=== PATIENT | male | born 1980 | race Caucasian/White ===

== ENCOUNTER 2019-07-10 15:53 | Emergency (ER) | payer OTHER ==
--- NOTE | 2019-07-10 18:13 | ED Physician Documentation ---
History of Present Illness - Stated complaint Stated Complaint: L ELBOW SWELLING - Chief complaint Chief Complaint: Ext Problem - Additonal information Additional information: This is a 38-year-old male who presents with left elbow swelling and pain. Patient worked out this morning doing triceps at 5 AM, and then around noon he was working at the computer and he began having some pain in the posterior elbow. He states it is increased and is noticed swelling in the back of his to the area, or any wounds over the area. There is feels hot to the touch. He has had a MRSA infection in the past but not in the joints, the running and skin infections. No fever. Review of Systems Constitutional: denies: Fever Musculoskeletal: reports: Extremity pain Immunocompromised: denies: Immunocompromised PD PAST MEDICAL HISTORY - Past Surgical History Past Surgical History: Yes - Present Medications Home Medications: Ambulatory Orders Medication Instructions Recorded Confirmed No Known Home Medications 05/05/19 05/05/19 Omeprazole 20 mg PO BID 05/05/19 07/10/19 - Allergies Allergies/Adverse Reactions: Allergies Allergy/AdvReac Type Severity Reaction Status Date / Time Penicillins Allergy Hives Verified 07/10/19 16:10 - Social History Does the pt smoke?: Yes Smoking Status: Current every day smoker Does the pt drink ETOH?: Yes Does the pt have substance abuse?: No - Immunizations Immunizations are current?: Yes PD ED PE NORMAL - General General: Alert and oriented X 3 - HEENT HEENT: Atraumatic - Cardiac Cardiac: RRR - Respiratory Respiratory: No respiratory distress - Extremities Extremities: Other (There is redness and warmth over the olecranon of the left elbow. There is fluid palpable in the bursa. No joint tenderness. No overlying lesions or breaks in the skin. Limb is neurovascularly intact. Surrounding tissues are unremarkable.) - Neuro Neuro: Alert and oriented X 3 - Psych Psych: Normal mood, Normal affect Results - Vitals Vitals: Oxygen O2 Source Room air - Labs Labs: Microbiology 07/10/19 19:05 Body Fluid Culture - Final Synovial Fluid Staphylococcus Aureus Laboratory Tests 07/10/19 07/10/19 07/10/19 18:35 18:35 19:05 WBC 9.4 RBC 4.54 L Hgb 14.9 Hct 43.2 MCV 95.2 H MCH 32.8 H MCHC 34.5 RDW 11.5 L Plt Count 181 MPV 10.4 Neut # (Auto) 6.4 Lymph # (Auto) 2.0 [place] # (Auto) 0.8 Eos # (Auto) 0.2 Baso # (Auto) 0.1 Absolute Nucleated RBC 0.00 Nucleated RBC % 0.0 Sodium 136 Potassium 4.1 Chloride 100 L Carbon Dioxide 25 Anion Gap 11.0 BUN 37 H Creatinine 1.2 Estimated GFR (MDRD) 68 L Glucose 97 Calcium 9.4 Total Bilirubin 0.8 AST 31 ALT 30 Alkaline Phosphatase 60 C-Reactive Protein < 1.0 Total Protein 7.8 Albumin 4.5 Globulin 3.3 Albumin/Globulin Ratio 1.4 Lipase 33 Fluid Crystals NONE SEEN Procedures - General procedure General procedure: Bursa aspiration: Verbal consent was obtained and the elbow was prepped with chlorhexidine and drapped with sterile towels. Using sterile technique a wheal of lidocaine was injected followed by aspiration of the bursa with a 20 gauge needle. There was return of ~5ml of reddish clear fluid, which did not appear purulent. This was sent to lab. A clean bandage applied over the aspiration site. Pt tolerated procedure well without immediate complication. PD MEDICAL DECISION MAKING - ED course Complexity details: considered differential (Bursitis, septic bursitis, overuse injury, septic joint) ED course: Pt presents with a swollen, painful elbow after working out this morning. The inflammation is located over the bursa and he has no pain in the joint itself, he does have good ROM of the elbow with some discomfort. This does not appear to be septic arthritis. I aspirated the bursa and gram stain shows no organisms, unfortunately there was an error with the lab cell counts so these were no accurately obtained. No crystals seen. No leukocytosis on labs, CRP negative. I discussed that we will culture the fluid and treat him for what appears to be an inflammatory bursitis at this time. I discussed that if he has worsening, difficulty moving the elbow, or fever, he needs to return as this could be suggestive of infection, though his results are reassuring at this time. He agrees and was discharged home. Addendum: I reviewed the microbiology on 07/13, it shows firtz-sensitive Staph Aureus. I called the patient, he had not yet heard this result, he did follow up 2 days ago and was started on bactrim and tramadol by a provider in the [facility]. He has taken the bactrim for 48 hours and his pain is decreased but redness has extended further along the arm. Given this is progressing despite abx I asked that he come back to the ED as he may need repeat aspiration and IV abx. At the very least he needs a repeat exam to ensure there are not signs of joint involvement. He agrees and will be seen promptly. I called the [facility] to update Lt. Bassart as requested by Pt, and the ED to notify the provider on. Departure - Departure Disposition: 01 Home, Self Care Clinical Impression: Olecranon bursitis, left elbow Condition: Good Instructions: ED Bursitis Elbow Olecranon Follow-Up: Your,PCP [Other] Comments: You appear to have a bursitis or inflammation of a fluid-filled sac around your elbow. We do not see signs of an infection in the bursa at this time. You may take ibuprofen 600 mg every 6 hours for pain, ice the elbow for 20 minutes at a time at least 3 times a day, and avoid trauma to the elbow and repetitive motion of the elbow until this is improving. Please follow-up with your primary care provider. If you are developing signs of infection such as redness streaking away from the elbow, fever, or pus draining from the elbow, return to the emergency department. Forms: Activity restrictions Discharge Date/Time: 07/10/19 21:13
[2019-07-10] MEDS ORDERED: LIDOCAINE 1% 2 ML VIAL SUBQ STA (18:19)
[2019-07-10 18:44] LABS: BASOPHILS # (AUTO) 0.1 10^3/uL (0.0-0.1); BASOPHILS % (AUTO) 0.5 %; EOSINOPHILS # (AUTO) 0.2 10^3/uL (0.0-0.7); EOSINOPHILS % (AUTO) 2.1 %; HGB - HEMOGLOBIN 14.9 g/dL (14.0-18.0); LYMPHOCYTES % (AUTO) 21.4 %; MEAN CORPUSCULAR HEMOGLOBIN 32.8 pg (27.0-31.0); MEAN CORPUSCULAR HGB CONC 34.5 g/dL (32.0-36.0); MEAN CORPUSCULAR VOLUME 95.2 fL (80.0-94.0); MEAN PLATELET VOLUME 10.4 fL (7.4-11.4); MONOCYTES # (AUTO) 0.8 10^3/uL (0.0-1.0); NEUTROPHILS # (AUTO) 6.4 10^3/uL (1.5-6.6); NEUTROPHILS % (AUTO) 67.7 %; PLT - PLATELET COUNT 181 10^3/uL (130-450); RED BLOOD COUNT 4.54 10^6/uL (4.70-6.10); RED CELL DISTRIBUTION WIDTH 11.5 % (12.0-15.0); WHITE BLOOD COUNT 9.4 x10^3/uL (4.8-10.8)
--- NOTE | 2019-07-10 18:55 | XRAY Report ---
Reason: Posterior elbow swelling and pain Procedure Date: 07/10/2019 Accession Number: [id number] / [id number] Procedure: XR - Elbow 3 View LT CPT Code: Final Report FULL RESULT: EXAM: LEFT ELBOW RADIOGRAPHY EXAM DATE: 07/10/2019 06:33 PM. CLINICAL HISTORY: Posterior elbow swelling and pain. COMPARISON: None. TECHNIQUE: 3 views. FINDINGS: Bones: Normal. No fractures or bone lesions. Joints: Normal. No effusion. No subluxation. Soft Tissues: Posterior olecranon soft tissue swelling present. No soft tissue gas evident. IMPRESSION: Posterior olecranon soft tissue swelling most consistent with olecranon bursitis. RADIA
[2019-07-10 18:58] LABS: ALBUMIN 4.5 g/dL (3.2-5.5); ALBUMIN/GLOBULIN RATIO 1.4 (1.0-2.2); ALKALINE PHOSPHATASE 60 IU/L (42-121); ALT ALANINE AMINOTRANSFERASE 30 IU/L (10-60); AST ASPARTATE AMINOTRANSFERASE 31 IU/L (10-42); BILIRUBIN,TOTAL 0.8 mg/dL (0.2-1.0); BUN - BLOOD UREA NITROGEN 37 mg/dL (6-20); CALCIUM 9.4 mg/dL (8.5-10.3); CARBON DIOXIDE - CO2 25 mmol/L (21-32); CHLORIDE 100 mmol/L (101-111); CREATININE 1.2 mg/dL (0.6-1.2); GFR - MDRD 68 (>89); GLUCOSE 97 mg/dL (70-100); LIPASE 33 U/L (22-51); SODIUM 136 mmol/L (135-145); TOTAL PROTEIN 7.8 g/dL (6.7-8.2)
[2019-07-10 19:30] LABS: CRP - C-REACTIVE PROTEIN < 1.0 mg/dL (0-1.0)
[2019-07-10 21:00] VITALS: BP 136/94
== END 2019-07-10 21:13 | disposition home or self-care (01) ==
LOC: ED 15:53
DX: M70.22 Olecranon bursitis, left elbow (principal); F17.200 Nicotine dependence, unspecified, uncomplicated
CPT/HCPCS: 20605; 36415; 80053; 83690; 85025; 86140; 87070; 87181; 87205; 89051; 89060

== ENCOUNTER 2019-07-13 13:11 | Emergency (ER) | payer OTHER ==
[2019-07-13] MEDS ORDERED: KETOROLAC 30 MG/ML VIAL IVP STA (14:30)
[2019-07-13] MEDS ORDERED: HYDROmorphone 2 MG/ML VIAL IVP STA (14:30)
[2019-07-13] MEDS ORDERED: SODIUM CHLORIDE 0.9% 1,000 ML IV ONE (14:30)
[2019-07-13] MEDS ORDERED: CLINDAMYCIN 900 MG/50 ML 50 ML IV ONE (14:30)
--- NOTE | 2019-07-13 14:40 | ED Physician Documentation ---
PD HPI SKIN - Stated complaint Stated Complaint: LT ELBOW PX - Chief complaint Chief Complaint: Ext Problem - History obtained from History obtained from: Patient - History of Present Illness Timing - onset: How many days ago (4-5) Timing - duration: Days (4-5) Timing - details: Gradual onset, Still present (Onset of left elbow pain redness and swelling. He was seen here in the emergency room a few days ago and had an aspiration of the elbow. It was thought likely inflammatory so no antibiotics. He is seen in follow-up by his primary care is started him on Bactrim. He started that 1-1/2 days ago but has not had improvement in the elbow and the area of redness has extended into today. Cultures showed staph aureus from the aspiration sensitive to all the antibiotics. The patient was referred back to the ER for potential IV antibiotics and also likely incision and drainage. He does not have any generalized symptoms such as fever nausea or myalgias.) Location: LUE (posterior elbow) Quality / character: Painful, Discolored (red), Swelling. No: Draining Associated symptoms: Joint pain (just the left elbow bursa). No: Fever, N/V/D Contributing factors: No: Recent illness Recently seen: Clinic, Emergency Dept (see above) Review of Systems Constitutional: denies: Fever, Chills GI: denies: Nausea, Vomiting, Diarrhea Neurologic: denies: Focal weakness, Numbness PD PAST MEDICAL HISTORY - Past Medical History Past Medical History: No - Past Surgical History Past Surgical History: Yes - Present Medications Home Medications: Ambulatory Orders Medication Instructions Recorded Confirmed No Known Home Medications 05/05/19 05/05/19 Omeprazole 20 mg PO BID 05/05/19 07/10/19 - Allergies Allergies/Adverse Reactions: Allergies Allergy/AdvReac Type Severity Reaction Status Date / Time Penicillins Allergy Hives Verified 07/13/19 13:22 - Social History Does the pt smoke?: Yes Smoking Status: Current every day smoker Does the pt drink ETOH?: Yes Does the pt have substance abuse?: No - Immunizations Immunizations are current?: Yes PD ED PE NORMAL - Vitals Vital signs reviewed: Yes - General General: Alert and oriented X 3, Well developed/nourished, Other (guarded ROM of the left elbow, otherwise appears okay. ) - Cardiac Cardiac: RRR, No murmur - Respiratory Respiratory: Clear bilaterally - Derm Derm: Normal color, Warm and dry - Extremities Extremities: Other (Left elbow posteriorly shows redness warmth and tenderness primarily over the bursal area. However the redness extends to mid forearm area on the ulnar side and up to mid humerus as well. There is no effusion of the joint itself. Palpation of the bursa as small amount of fluid effusion.) Results - Vitals Vitals: Vital Signs - 24 hr 07/13/19 13:22 Temperature 36.9 C Heart Rate 107 H Respiratory 18 Rate Blood Pressure 141/79 H O2 Saturation 98 Oxygen O2 Source Room air Procedures - Abscess I&D (location) left elbow bursa Preparation: Chlorhexadine, Marcaine 0.5%, With epi Incision: Incised with scalpel, Packed (wick inserted with 1/4 inch iodoform). No: Purulent drainage (rather clear watery fluid.), Culture obtained (previously cultured 3 days ago) Other: Pt tolerated well, Dressing applied PD MEDICAL DECISION MAKING - ED course Complexity details: reviewed old records, reviewed results, considered differential (Revisit of a bursal effusion and bursitis with light growth of staph aureus on a recent aspiration. Will give additional dose of antibiotics. We will also do an incision and drainage with likely a week to ensure continued draining.), d/w patient Departure - Departure Disposition: 01 Home, Self Care Clinical Impression: Olecranon bursitis, left elbow Condition: Stable Record reviewed to determine appropriate education?: Yes Instructions: ED Bursitis Follow-Up: NEETA GARCIA ARNP [Primary Care Provider] - Comments: Continue your current antibiotics. Ibuprofen 3 times a day regularly. Add the tramadol prescribed by your primary care if needed. Keep the packing in place to act as a wick for couple of days until there is no more drainage in the infection is improving. Recheck if not improving well over the next couple of days. Forms: Activity restrictions
[2019-07-13] MEDS ORDERED: HYDROmorphone 1 MG/ML CARPUJECT IVP STA (15:22)
[2019-07-13 16:27] VITALS: BP 138/75
== END 2019-07-13 16:26 | disposition home or self-care (01) ==
LOC: ED 13:11
DX: M70.22 Olecranon bursitis, left elbow (principal); F17.200 Nicotine dependence, unspecified, uncomplicated
CPT/HCPCS: 23931; 96365; 96375; 96376; 99284; J1170

== ENCOUNTER 2019-12-18 10:06 | Emergency (ER) | payer OTHER ==
[2019-12-18 11:41] LABS: BASOPHILS % (AUTO) 0.6 %; EOSINOPHILS # (AUTO) 0.1 10^3/uL (0.0-0.7); EOSINOPHILS % (AUTO) 1.9 %; LYMPHOCYTES # (AUTO) 1.2 10^3/uL (1.5-3.5); LYMPHOCYTES % (AUTO) 24.5 %; MEAN CORPUSCULAR HEMOGLOBIN 33.2 pg (27.0-31.0); MEAN CORPUSCULAR HGB CONC 34.6 g/dL (32.0-36.0); MEAN CORPUSCULAR VOLUME 95.8 fL (80.0-94.0); MEAN PLATELET VOLUME 10.8 fL (7.4-11.4); MONOCYTES # (AUTO) 0.4 10^3/uL (0.0-1.0); MONOCYTES % (AUTO) 8.2 %; NEUTROPHILS # (AUTO) 3.1 10^3/uL (1.5-6.6); NEUTROPHILS % (AUTO) 64.4 %; PLT - PLATELET COUNT 162 10^3/uL (130-450); RED BLOOD COUNT 4.52 10^6/uL (4.70-6.10); RED CELL DISTRIBUTION WIDTH 11.6 % (12.0-15.0); WHITE BLOOD COUNT 4.8 x10^3/uL (4.8-10.8)
[2019-12-18 11:52] LABS: ALBUMIN 4.6 g/dL (3.2-5.5); ALBUMIN/GLOBULIN RATIO 1.6 (1.0-2.2); BILIRUBIN,TOTAL 1.1 mg/dL (0.2-1.0); CALCIUM 9.1 mg/dL (8.5-10.3); CREATININE 1.1 mg/dL (0.6-1.2); TOTAL PROTEIN 7.4 g/dL (6.7-8.2)
--- NOTE | 2019-12-18 12:21 | ED Physician Documentation ---
PD HPI CHEST PAIN - Stated complaint Stated Complaint: HEART PALPITATIONS - Chief complaint Chief Complaint: Cardiac - History obtained from History obtained from: Patient - History of Present Illness Timing - onset: How many weeks ago (1-2) Timing - onset during: Rest Timing - duration: Days (7-10) Timing - details: Intermittant (has had feeling of irregular heart beats the past 7-10 days, noted mostly when at rest and at night lying down. No exertional chest pain nor dyspnea.) Quality: No: Pressure, Tightness Location: Substernal Worsened by: No: Exertion, Inspiration Associated symptoms: Palpitations. No: Shortness of air, Feeling faint / dizzy Similar symptoms before: Has not had sx before Review of Systems Constitutional: denies: Fever, Chills Nose: denies: Rhinorrhea / runny nose, Congestion Throat: denies: Sore throat Respiratory: denies: Cough GI: denies: Nausea, Vomiting, Diarrhea Neurologic: denies: Near syncope PD PAST MEDICAL HISTORY - Past Medical History Past Medical History: Yes Cardiovascular: None Respiratory: None Neuro: None Endocrine/Autoimmune: None GI: None : None HEENT: None Psych: None Musculoskeletal: None Derm: None - Past Surgical History Past Surgical History: Yes General: EGD, Other - Present Medications Home Medications: Ambulatory Orders Medication Instructions Recorded Confirmed No Known Home Medications 05/05/19 05/05/19 Omeprazole 20 mg PO BID 05/05/19 07/10/19 - Allergies Allergies/Adverse Reactions: Allergies Allergy/AdvReac Type Severity Reaction Status Date / Time Penicillins Allergy Hives Verified 12/18/19 10:12 - Living Situation Living Situation: reports: With spouse/s.o. Living Arrangement: reports: At home, Other (2-3 caffeinated drinks daily) - Social History Does the pt smoke?: Yes Smoking Status: Current every day smoker Does the pt drink ETOH?: Yes ETOH Use: Other (2-3 drinks most nights. ) Does the pt have substance abuse?: No - Immunizations Immunizations are current?: Yes - POLST Patient has POLST: No PD ED PE NORMAL - Vitals Vital signs reviewed: Yes - General General: Alert and oriented X 3, Well developed/nourished - HEENT HEENT: Pharynx benign - Neck Neck: Supple, no meningeal sign, No adenopathy, Thyroid normal - Cardiac Cardiac: RRR, No murmur - Respiratory Respiratory: Clear bilaterally - Abdomen Abdomen: Soft, Non tender - Derm Derm: Normal color, Warm and dry - Extremities Extremities: Normal ROM s pain, No edema, No calf tenderness / cord - Neuro Neuro: Alert and oriented X 3, No motor deficit, Normal speech Results - Vitals Vitals: Vital Signs - 24 hr 12/18/19 12/18/19 12/18/19 10:12 10:31 12:43 Temperature 36.6 C 36.4 C L Heart Rate 122 H 106 H 108 H Respiratory 17 20 20 Rate Blood Pressure 161/90 H 146/102 H 140/88 H O2 Saturation 100 100 100 Oxygen O2 Source Room air - EKG (time done) 10:30 Rate: Rate (enter#) (94) Rhythm: NSR [place]: Normal Intervals: Normal ME QRS: Normal Ischemia: Normal ST segments. No: ST elevation c/w ischemia, ST depression - Tele (time rhythm occurred) in ED Telemetry / rhythm strip: NSR, Other (occasional PVCs) - Labs Labs: Laboratory Tests 12/18/19 12/18/19 12/18/19 11:35 11:35 11:35 WBC 4.8 RBC 4.52 L Hgb 15.0 Hct 43.3 MCV 95.8 H MCH 33.2 H MCHC 34.6 RDW 11.6 L Plt Count 162 MPV 10.8 Neut # (Auto) 3.1 Lymph # (Auto) 1.2 L [place] # (Auto) 0.4 Eos # (Auto) 0.1 Baso # (Auto) 0.0 Absolute Nucleated RBC 0.00 Nucleated RBC % 0.0 Sodium 138 Potassium 3.9 Chloride 105 Carbon Dioxide 25 Anion Gap 8.0 BUN 13 Creatinine 1.1 Estimated GFR (MDRD) 75 L Glucose 119 H Calcium 9.1 Magnesium 2.0 Total Bilirubin 1.1 H AST 19 ALT 16 Alkaline Phosphatase 56 Total Protein 7.4 Albumin 4.6 Globulin 2.8 Albumin/Globulin Ratio 1.6 Lipase 24 TSH 3.08 PD MEDICAL DECISION MAKING - ED course Complexity details: reviewed results, considered differential (monitor showing occasional PVCs that he says is the same feeling he has been having. ), d/w patient Departure - Departure Disposition: 01 Home, Self Care Clinical Impression: PVC (premature ventricular contraction) Condition: Stable Record reviewed to determine appropriate education?: Yes Instructions: ED Palpitations Follow-Up: NEETA GARCIA ARNP [Primary Care Provider] - Comments: You are having extra beats a single at a time called PVC. These are typically benign though they can be annoying. Your basic electrolytes and thyroid screen and blood sugar are normal as is your blood count. At this point I would suggest staying well-hydrated and decreasing the stimulants of caffeine nicotine and alcohol, even though you do not really have that much of any of those. Typically these palpitations will phase out over a week or 2. Hydration can be la in it. No known Follow-up if still not improving over the next few weeks or becoming more common or often as there can be medication used to diminish them. At this point would usually not go with that to minimize side effects from the medicines. Discharge Date/Time: 12/18/19 12:44
[2019-12-18 12:45] VITALS: BP 140/88
== END 2019-12-18 12:44 | disposition home or self-care (01) ==
LOC: ED 10:06
DX: I49.3 Ventricular premature depolarization (principal); F17.200 Nicotine dependence, unspecified, uncomplicated
CPT/HCPCS: 36415; 80053; 83690; 83735; 84443; 85025; 93005; 99283; 99284

== ENCOUNTER 2020-07-26 13:56 | Outpatient (CLI) | payer OTHER ==
[2020-07-26 14:38] VITALS: BP 129/85
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
== END 2020-07-26 13:57 | disposition home or self-care (01) ==
LOC: SC 13:56
PROVIDERS: ATTEND Nurse Practitioner Family
DX: R06.83 Snoring (principal); G47.8 Other sleep disorders; R51.9 Headache, unspecified; R41.89 Other symptoms and signs involving cognitive functions and awareness; G47.10 Hypersomnia, unspecified
CPT/HCPCS: 99203; 99212

== ENCOUNTER 2020-10-07 19:21 | Outpatient (CLI) | payer OTHER | END 2020-10-07 19:22 | disposition home or self-care (01) | LOC: SC 19:21 | PROVIDERS: ATTEND Nurse Practitioner Family | DX: G47.61 Periodic limb movement disorder (principal) | CPT/HCPCS: 95810 ==

== ENCOUNTER 2020-10-15 15:43 | Outpatient (CLI) | payer OTHER ==
--- NOTE | 2020-10-15 16:24 | SLEEP CARE CONSULTATION ---
Information from patient questionnaire entered by Sri Kevin. I have reviewed and concur with the information entered by Sri Kevin. This document represents the service I personally performed and the decisions made by , Janelle Mckeon ARNP. History of Present Illness Service Date and Time: 10/15/2020 1543 Initial [place] Sleepiness Scale score: 18 (in 2019) Current [place] Sleepiness Scale score: 17 Additional HPI information: ELVIRA EDWARDS returns for follow up and results of the recently performed polysomnography. The patient was informed of the following findings: no significant sleep disordered breathing with an average AHI of 0.2 and daniel oxygen saturation of 92%. He had light snoring and moderate PLMs. I explained the pathophysiology behind obstructive sleep apnea. Patient does not have sleep apnea and was advised how weight gain could increase the risk of developing sleep apnea in the future. Patient has light snoring. Patient counseled not drink alcohol less than 4 hours before bedtime as it can increase snoring and apnea. Patient was cautioned about risks of drowsy driving until sleepiness symptoms resolve. Sleep Study - Results Type of Sleep Study: Polysomnography Prior sleep studies: No Polysomnography/Home Sleep Study results: IMPRESSION: The quality of the study is good. The patient had normal sleep efficiency. The sleep architecture was normal as well.. Respiratory monitoring showed no significant sleep disordered breathing (AHI = 0.2) or hypoxia (daniel oxygen saturation of 92%). The patient slept adequately in supine position (supine AHI = 0.0; nonsupine = 0.21). Snore was infrequent and light in intensity. There was moderate periodic leg movement of sleep not associated with sleep fragmentation. Cardiac rhythm was normal sinus rhythm without significant arrhythmia. No abnormal behavior (parasomnia) observed during the night. Allergies and Home Medications Home medication list reviewed: Yes (no changes) Review of Systems Review of systems same as previous: Yes (no changes) Physical Exam Heart Rate: 96 O2 Saturation: 98 Height: 6 ft 6 in Weight: 173 lb Body Mass Index: 20.0 BMI Classification: Healthy weight Impression and Plan 1. Periodic limb movement, moderate, that did not fragment patients sleep. Periodic limb movement of sleep (PLMS) is characterized by episodes of repetitive limb movements that occur during sleep and usually involve the lower limbs. The etiology is unknown but can be associated with restless leg syndrome (RLS), neuropathy, spinal cord diseases, kidney disease, rheumatological disorders, narcolepsy, obstructive sleep apnea, and REM sleep behavior disorder. Other factors that can increase PLMS and/or RLS are heredity and iron deficiency as reflected by a low serum ferritin level below 50 to 75mcg / L. Several medications can precipitate or aggravate PLMS such as selective serotonin re- uptake inhibitor antidepressants, tricyclic antidepressants, lithium, and dopamine receptor antagonists with the exception of bupropion. Caffeine can also aggravate PLMS and should be avoided. Sleep hygiene methods can also improve sleep as well as lifestyle changes such as regular exercise. Patient was advised that no treatment is needed at this time. If symptoms increase, then further evaluation is indicated. * Follow up as needed with PCP for moderate PLMs * Avoid alcohol consumption near bedtime * The patient is cautioned about driving until sleepiness is completely reso lved. * Return as needed. Visit Type: In Office Time Spent with Patient (minutes): 11 Provider Statement: I spent 100% of the Face to Face Visit with the patient with greater than 50% spent counseling the patient and coordination of care.
== END 2020-10-15 15:44 | disposition home or self-care (01) ==
LOC: SC 15:43
PROVIDERS: ATTEND Nurse Practitioner Family
DX: G47.61 Periodic limb movement disorder (principal)
CPT/HCPCS: 99212

== ENCOUNTER 2021-09-22 07:01 | Outpatient (CLI) | payer OTHER ==
[2021-09-22] MEDS ORDERED: GADOBUTROL 7.5 MMOL/7.5 ML VIAL ONE (07:30)
--- NOTE | 2021-09-22 10:39 | MRI Report ---
PROCEDURE: MRI orbits with and without contrast, MRI brain with and without contrast INDICATIONS: CYST OF RIGHT ORBIT, HEADACHE CONTRAST: IV CONTRAST: Gadavist ml: 6.8 TECHNIQUE: Multiplanar multisequential MRI images of the brain and orbits was obtained before and aft er intravenous Gadavist contrast administration. COMPARISON: None. FINDINGS: Image quality: Excellent. Orbits: Globes are symmetrical. The optic nerves are normal in size, without abnormal signal or enh ancement. No retrobulbar masses or fat abnormalities. The extra-ocular muscles are normal and symme tric in appearance. Lacrimal glands are normal. Optic chiasm is normal. Periorbital soft tissues a ppear normal. CSF spaces: Ventricles are normal in size and shape. Basal cisterns are patent. No extra-axial flu id collections. Brain: No intracranial bleeds or mass effects. No abnormal intracranial enhancement. Ryder-white ma tter interface is intact. Diffusion weighted images demonstrate no acute ischemic insults. Pituitar y gland appears normal, without sellar or suprasellar masses. Brainstem appears normal. Normal intr avascular flow voids are present. Skull and face: Calvarial marrow is normal in signal. Sinuses: Sinuses and mastoids are clear. IMPRESSION: 1. Normal MRI of the orbits with and without contrast. No evidence of cyst. 2. Normal MRI of the brain with and without contrast. No intracranial hemorrhage, infarct or mass les ion. Reviewed by: Blane Davis MD on 09/22/2021 9:38 AM [place] Approved by: Blane Davis MD on 09/22/2021 9:38 AM [facility] Station ID: [id number]
[2021-09-23] MEDS ORDERED: GADOBUTROL 7.5 MMOL/7.5 ML VIAL IVP ONE (07:42)
== END 2021-09-22 07:02 | disposition home or self-care (01) ==
LOC: DI 07:01
PROVIDERS: ATTEND Optometrist
DX: H05.811 Cyst of right orbit (principal)

== ENCOUNTER 2021-09-22 18:35 | Emergency (ER) | payer OTHER ==
[2021-09-22] MEDS ORDERED: MORPHINE 2 MG/ML CARPUJECT IVP STA (18:40)
[2021-09-22] MEDS ORDERED: ONDANSETRON 4 MG/2 ML VIAL IVP STA (18:40)
[2021-09-22] MEDS ORDERED: NITROGLYCERIN SL 0.4 MG TABLET SL STA (18:40)
--- NOTE | 2021-09-22 18:41 | ED Physician Documentation ---
History of Present Illness - Stated complaint Stated Complaint: FOREIGN OBJECT IN THROAT - History obtained from History obtained from: Patient - Additonal information Additional information: 40-year-old gentleman with history of eosinophilic esophagitis, last EGD approximately 2 to 3 years ago and was dilated then. Eating steak tonight and feels like it is stuck basically at the level of the clavicles. Review of Systems Ten Systems: 10 systems reviewed and negative Constitutional: reports: Reviewed and negative Nose: reports: Reviewed and negative Throat: reports: Reviewed and negative Cardiac: reports: Reviewed and negative PD PAST MEDICAL HISTORY - Past Medical History Cardiovascular: None Respiratory: None Neuro: None Endocrine/Autoimmune: None GI: None : None HEENT: None Psych: None Musculoskeletal: None Derm: None - Past Surgical History Past Surgical History: Yes General: EGD, Other - Present Medications Home Medications: Ambulatory Orders Medication Instructions Recorded Confirmed No Known Home Medications 05/05/19 05/05/19 Omeprazole 20 mg PO BID 05/05/19 07/10/19 - Allergies Allergies/Adverse Reactions: Allergies Allergy/AdvReac Type Severity Reaction Status Date / Time Penicillins Allergy Hives Verified 09/22/21 18:44 - Social History Does the pt smoke?: Yes Smoking Status: Current every day smoker Does the pt drink ETOH?: Yes Does the pt have substance abuse?: No - Immunizations Immunizations are current?: Yes - POLST Patient has POLST: No PD ED PE NORMAL - Vitals Vital signs reviewed: Yes - General General: Alert and oriented X 3, Other (He is retching and spitting out his secretions, phonation is normal.) - HEENT HEENT: Pharynx benign - Neck Neck: Supple, no meningeal sign, No bony TTP - Cardiac Cardiac: RRR, No murmur - Respiratory Respiratory: No respiratory distress, Clear bilaterally - Abdomen Abdomen: Non tender - Neuro Neuro: Alert and oriented X 3, Normal speech - Psych Psych: Normal mood, Normal affect Results - Vitals Vitals: Vital Signs - 24 hr 09/22/21 09/22/21 09/22/21 18:40 18:44 19:16 Temperature 37.1 C Heart Rate 150 H 128 H 107 H Respiratory 32 H 20 Rate Blood Pressure 147/133 H 147/133 H 139/89 H O2 Saturation 98 98 100 Oxygen O2 Source Room air PD MEDICAL DECISION MAKING - ED course ED course: 40-year-old gentleman with history of eosinophilic esophagitis and known history of past esophageal strictures with dilations in the past albeit none in a few years presents with a food impaction with steak. He was attended to immediately and was retching but his airway was intact. He was administered initially nitroglycerin and a little bit of morphine and subsequently with glucagon his food obstruction resolved and he was tolerating his secretions and feeling much better. Discussed with him the need to follow-up with GI as he is probably overdue for upper endoscopy and reevaluation of potential restricturing. Departure - Departure Disposition: 01 Home, Self Care Clinical Impression: Esophageal obstruction due to food impaction Condition: Good Record reviewed to determine appropriate education?: Yes Instructions: ED Foreign Body Esophageal Rslv Comments: Thankfully, although the food bolus passed tonight, you should still follow-up with your automated logistics specialist and consider upper endoscopy as you may have a recurrent stricture. Until then you should eat probably fairly soft food and if you choose to eat any meat make sure it is chewed extremely well and chopped quite fine. Continue current medications. Return for new or worsening symptoms. Discharge Date/Time: 09/22/21 19:22
[2021-09-22] MEDS ORDERED: GLUCAGON 1 MG/ML VIAL IVP STA (18:56)
[2021-09-22] MEDS ORDERED: HYDROcod/ACET 5/325 Prepack 4 PO STA (19:13)
[2021-09-22 19:17] VITALS: BP 139/89
== END 2021-09-22 19:22 | disposition home or self-care (01) ==
LOC: ED 18:35
DX: T18.0XXA Foreign body in mouth, initial encounter (principal); K22.2 Esophageal obstruction; X58.XXXA Exposure to other specified factors, initial encounter; F17.200 Nicotine dependence, unspecified, uncomplicated; H05.811 Cyst of right orbit
CPT/HCPCS: 36415; 70543; 96374; 96375; 99283; A9270; A9585

== ENCOUNTER 2021-09-23 10:40 | Outpatient (CLI) | payer OTHER | END 2021-09-23 10:41 | disposition left against medical advice (07) | LOC: EMS 10:40 | DX: R42 Dizziness and giddiness (principal); R53.1 Weakness ==

== ENCOUNTER 2021-09-23 11:32 | Emergency (ER) | payer OTHER ==
--- NOTE | 2021-09-23 12:23 | ED Physician Documentation ---
History of Present Illness - Stated complaint Stated Complaint: DIZZINESS,NAUSEA,WEAKNESS - Chief complaint Chief Complaint: Cardiac - History obtained from History obtained from: Patient - Additonal information Additional information: Starting at 9am today felt dizzy, nauseous and palpitations and felt clammy. Went to [facility] and not seen. Lamont better p 45 minutes. Assoc with epigastric pain. Better with deep breathing. Review of Systems Constitutional: reports: Sweats. denies: Fever, Chills Nose: denies: Rhinorrhea / runny nose, Congestion Throat: denies: Sore throat Cardiac: reports: Palpitations. denies: Chest pain / pressure Respiratory: denies: Dyspnea, Cough GI: denies: Abdominal Pain PD PAST MEDICAL HISTORY - Past Medical History Cardiovascular: None Respiratory: None Neuro: None Endocrine/Autoimmune: None GI: None : None HEENT: None Psych: None Musculoskeletal: None Derm: None - Past Surgical History Past Surgical History: Yes General: EGD, Other - Present Medications Home Medications: Ambulatory Orders Medication Instructions Recorded Confirmed Amitriptyline HCl 50 mg PO HS 09/23/21 09/23/21 Gabapentin [Neurontin] 300 mg PO TID 09/23/21 09/23/21 Ibuprofen [Advil] 400 mg PO Q6HR PRN 09/23/21 09/23/21 Pantoprazole [Protonix] 40 mg PO DAILY 09/23/21 09/23/21 Tramadol HCl [Ultram] 50 mg PO Q6HR PRN 09/23/21 09/23/21 - Allergies Allergies/Adverse Reactions: Allergies Allergy/AdvReac Type Severity Reaction Status Date / Time Penicillins Allergy Hives Verified 09/23/21 11:48 - Social History Does the pt smoke?: Yes Smoking Status: Current every day smoker Does the pt drink ETOH?: Yes Does the pt have substance abuse?: No - Immunizations Immunizations are current?: Yes - POLST Patient has POLST: No PD ED PE NORMAL - Vitals Vital signs reviewed: Yes - General General: Alert and oriented X 3, No acute distress - HEENT HEENT: PERRL, EOMI - Neck Neck: Supple, no meningeal sign, No bony TTP - Cardiac Cardiac: RRR, No murmur - Respiratory Respiratory: No respiratory distress, Clear bilaterally - Abdomen Abdomen: Normal bowel sounds, Soft, Non tender - Back Back: No CVA TTP, No spinal TTP - Derm Derm: Normal color, Warm and dry - Extremities Extremities: No edema, No calf tenderness / cord - Neuro Neuro: Alert and oriented X 3, Normal speech Results - Vitals Vitals: Vital Signs - 24 hr 09/23/21 09/23/21 11:42 12:33 Temperature 36.2 C L Heart Rate 91 92 Respiratory 16 25 H Rate Blood Pressure 126/86 H 142/104 H O2 Saturation 97 100 Oxygen O2 Source Room air - EKG (time done) 1151 Rate: Rate (enter#) (98) Rhythm: NSR, LAE [place]: Normal, Other (short MARIAELENA 107 msec) QRS: Normal Ischemia: Non specific changes. No: ST elevation c/w ischemia, ST depression - Labs Labs: Laboratory Tests 09/23/21 12:44 Sodium 138 Potassium 4.0 Chloride 101 Carbon Dioxide 26 Anion Gap 11.0 BUN 14 Creatinine 1.1 Estimated GFR (MDRD) 75 L Glucose 92 Calcium 9.2 Magnesium 2.1 PD MEDICAL DECISION MAKING - ED course ED course: 40-year-old gentleman with an episode of resolved palpitations and dizziness. Hollie garcia was here last night with an esophageal food impaction but has no severe chest pain at this point, so just some soreness. EKG is without ectopy or ischemia and his examination now is normal. Will watch him on the monitor for a bit and check electrolytes. Departure - Departure Disposition: 01 Home, Self Care Clinical Impression: Palpitations Condition: Good Record reviewed to determine appropriate education?: Yes Instructions: ED Palpitations Comments: Heart testing and electrolytes are now okay. Return if you worsen. Take it easy the rest of the day. Drink plenty of fluids. Call your doctor to arrange a follow-up appointment, make the next available appointment. In the interim, return anytime if worse or if new symptoms develop.
[2021-09-23 13:05] LABS: CALCIUM 9.2 mg/dL (8.5-10.3); CREATININE 1.1 mg/dL (0.6-1.2); MAGNESIUM 2.1 mg/dL (1.7-2.8)
[2021-09-23 13:20] VITALS: BP 128/98
== END 2021-09-23 13:23 | disposition home or self-care (01) ==
LOC: ED 11:32
DX: R42 Dizziness and giddiness (principal); R00.2 Palpitations; F17.200 Nicotine dependence, unspecified, uncomplicated
CPT/HCPCS: 36415; 80048; 83735; 93005; 99282; 99284

== ENCOUNTER 2021-09-24 08:41 | Outpatient (CLI) | payer OTHER ==
--- NOTE | 2021-09-24 11:21 | MRI Report ---
PROCEDURE: Lumbar Spine W/O INDICATIONS: Chronic pain TECHNIQUE: Noncontrast sagittal T1 spin echo and T2 fast echo, sagittal STIR, axial T1 and T2 fast spin echo thr ough the lumbar spine. In cases with scoliosis, additional coronal T2 fast spin echo may be performe d. COMPARISON: None. FINDINGS: Normal lumbar vertebral body height, alignment, and signal intensity. No suspicious focal marrow signal abnormality or bone marrow edema. Mild disc desiccation and height loss at L5-S1. No disc bulge or herniation at any level. No spinal canal stenosis or neural foraminal stenosis at any level. No significant degenerative changes of the facets or posterior elements. Normal position and appearance of the conus. Cauda equina nerve roots unremarkable. Prevertebral and paraspinal soft tissues are normal. Limited views of the unenhanced retroareolar str uctures demonstrate no acute finding. IMPRESSION: Normal MRI lumbar spine. No canal stenosis, neural foraminal stenosis, or evidence of focal nerve root impingement. No finding to explain low back pain. Reviewed by: James Davis MD on 09/24/2021 11:19 AM PST Approved by: James Davis MD on 09/24/2021 11:19 AM PST Station ID: [id number]
--- NOTE | 2021-09-24 11:22 | MRI Report ---
PROCEDURE: Thoracic Spine W/O INDICATIONS: Chronic pain TECHNIQUE: Noncontrast sagittal T1 spine echo and T2 fast spin echo, sagittal STIR, axial T1 and T2 fast spin ec ho through the thoracic spine. COMPARISON: None. FINDINGS: Normal thoracic vertebral body height and alignment. Normal marrow signal intensity without suspicious focal marrow signal abnormality or bone marrow nhan a. Normal thoracic intervertebral disc height and hydration. No significant degenerative changes of facets or endplates. Normal morphology and signal intensity of the thoracic cord. No evidence of significant central canal dilatation or syrinx. Prevertebral and paraspinous soft tissues are within normal limits. IMPRESSION: Normal thoracic spine MRI. Reviewed by: James Davis MD on 09/24/2021 11:21 AM PST Approved by: James Davis MD on 09/24/2021 11:21 AM PST Station ID: [id number]
== END 2021-09-24 08:42 | disposition home or self-care (01) ==
LOC: DI 08:41
PROVIDERS: ATTEND Family Medicine
DX: G89.29 Other chronic pain (principal); R53.83 Other fatigue; G43.909 Migraine, unspecified, not intractable, without status migrainosus